=== PATIENT | male | born 1970 | race African-American/Black ===

== ENCOUNTER 2016-10-23 10:31 | Emergency (ER) | payer BC, MEDICAID ==
--- NOTE | 2016-10-23 10:50 | ER Document Report ---
ED Medical Screen (RME) - General Stated Complaint: BACK PAIN Time seen by provider: 10:49 Mode of Arrival: Ambulatory Information source: Patient Notes: 46-year-old male moved heavy locker cabinets at work yesterday [facility]. He woke up this morning when is having pain when he moves between his shoulder blades. He thinks he pulled a muscle. No shortness of breath or cough. No anterior chest pain. No abdominal pain. TRAVEL OUTSIDE OF THE [place] IN LAST 30 DAYS: No - Related Data Allergies/Adverse Reactions: No Known Allergies Allergy (Verified 10/23/16 10:49) Past Medical History - Past Medical History Cardiac Medical History: Reports: Hx Atrial Fibrillation - Resolved, Hx Hypertension Past Surgical History: Reports: Hx Tonsillectomy - Immunizations Hx Diphtheria, Pertussis, Tetanus Vaccination: Yes Physical Exam - Vital signs Vitals: Temp Pulse Resp BP Pulse Ox 97.4 F 78 18 140/97 H 99 10/23/16 10:42 10/23/16 10:42 10/23/16 10:42 10/23/16 10:42 10/23/16 10:42 Course - Vital Signs Vital signs: Temp Pulse Resp BP Pulse Ox 97.4 F 78 18 140/97 H 99 10/23/16 10:42 10/23/16 10:42 10/23/16 10:42 10/23/16 10:42 10/23/16 10:42
--- NOTE | 2016-10-23 11:23 | ER Document Report ---
ED General - General Chief Complaint: Back Pain Stated Complaint: BACK PAIN Time seen by provider: 11:18 Mode of Arrival: Ambulatory Notes: This is a 46-year-old male with a history of hypertension and A. fib and hyperlipidemia that presents today with sharp back pain. He states that at 1500 yesterday afternoon he was moving locker cabinets and strained his muscles. This morning at 0300 he woke up with the back pain, and it's been getting progressively worse. Pain is sharp and is located between the shoulder blades with no radiation. With movement pain is a 10 out of 10. Denies chest pain shortness of breath nausea vomiting fever or chills. Primary care physician is Dr. Nieves Jones. Patient denies bowel or bladder dysfunction. TRAVEL OUTSIDE OF THE [place] IN LAST 30 DAYS: No - Related Data Allergies/Adverse Reactions: No Known Allergies Allergy (Verified 10/23/16 10:49) Past Medical History - General Information source: Patient - Social History Smoking Status: Never Smoker Chew tobacco use (# tins/day): No Frequency of alcohol use: None Drug Abuse: None Family History: Reviewed & Not Pertinent Patient has suicidal ideation: No Patient has homicidal ideation: No - Past Medical History Cardiac Medical History: Reports: Hx Atrial Fibrillation - Resolved, Hx Hypertension Past Surgical History: Reports: Hx Tonsillectomy - Immunizations Hx Diphtheria, Pertussis, Tetanus Vaccination: Yes Review of Systems - Review of Systems Constitutional: denies: Chills, Fever EENT: No symptoms reported. denies: Blurred vision Cardiovascular: denies: Chest pain, Palpitations, Syncope Respiratory: denies: Cough, Hurts to breathe Gastrointestinal: denies: Abdominal pain Genitourinary: No symptoms reported Skin: No symptoms reported Hematologic/Lymphatic: No symptoms reported Neurological/Psychological: No symptoms reported Physical Exam - Vital signs Vitals: Temp Pulse Resp BP Pulse Ox 97.4 F 78 18 140/97 H 99 10/23/16 10:42 10/23/16 10:42 10/23/16 10:42 10/23/16 10:42 10/23/16 10:42 - General General appearance: Appears well In distress: None - HEENT Head: Normocephalic, Atraumatic Eyes: Normal Conjunctiva: Normal - Respiratory Respiratory status: No respiratory distress. No: Tachypnea Chest status: Nontender Breath sounds: Normal. No: Rales, Rhonchi, Stridor, Wheezing Chest palpation: Normal - Cardiovascular Rhythm: Regular Heart sounds: Normal auscultation - Abdominal Inspection: Normal Distension: No distension Bowel sounds: Normal Tenderness: Nontender - Back Back: Normal - Thoracic back pain left paraspinal tenderness. No midline tenderness. - Extremities General upper extremity: Normal inspection, Nontender, Normal ROM, Normal strength General lower extremity: Normal inspection, Nontender, Normal ROM, Normal strength Foot: Normal - Dorsalis pedis bilateral palpable. +2 capillary refill bilaterally. Patient had sensation bilaterally both to plantar and dorsal surface. - Neurological Cognition: Normal. No: Confused - Psychological Associated symptoms: Normal affect, Normal mood - Skin Skin Temperature: Warm Skin Moisture: Dry Skin Color: Normal Course - Re-evaluation Re-evalutation: 10/23/16 11:22 Patient stated that he did not want any imaging. I advised him on the benefits and risks of imaging. He has ortho follow-up on Saturday. Patient denied chest pain and shortness of breath. - Vital Signs Vital signs: Temp Pulse Resp BP Pulse Ox 98.4 F 79 16 137/85 H 98 10/23/16 11:52 10/23/16 11:52 10/23/16 11:52 10/23/16 11:52 10/23/16 11:52 Discharge - Discharge Clinical Impression: Back pain Qualifiers: Back pain location: thoracic back pain Chronicity: acute Back pain laterality: left Qualified Code(s): M54.6 - Pain in thoracic spine Condition: Stable Disposition: HOME, SELF-CARE Additional Instructions: Return to the emergency department if symptoms worsen, such as tearing back pain nausea vomiting fever or loss of distal pulses,etc. Follow-up with primary care and orthopedics as soon as possible. Prescriptions: Methocarbamol [Robaxin 750 mg Tablet] 750 mg PO Q6 PRN #10 tablet PRN Reason: Forms: Return to Work Referrals: [facility] [Provider Group] - Follow up as needed
[2016-10-23 12:04] VITALS: BP 137/85
== END 2016-10-23 12:20 | disposition home or self-care (01) ==
LOC: ER 10:31
DX: M54.6 Pain in thoracic spine (principal); I10 Essential (primary) hypertension
CPT/HCPCS: 99283

== ENCOUNTER 2017-01-15 20:19 | Emergency (ER) | payer BC, MEDICAID ==
--- NOTE | 2017-01-15 22:09 | ER Document Report ---
ED Medical Screen (RME) - General Chief Complaint: Blood Pressure Problem Stated Complaint: DIZZY BLOOD PRESSURE ISSUES Mode of Arrival: Ambulatory Information source: Patient Notes: Patient presents emergency department with reports of high blood pressure when he took it at home it was 187/103. He reports he is feeling dizzy he denies chest pain, denies SOB. He reports he is dizzy when he stands up. He reports he's had this blood pressure problem for a while and is taking his medications as prescribed. Denies fever vomiting diarrhea. History of A. fib hypertension and high cholesterol TRAVEL OUTSIDE OF THE [place] IN LAST 30 DAYS: No - Related Data Allergies/Adverse Reactions: No Known Allergies Allergy (Verified 01/15/17 21:23) Past Medical History - Past Medical History Cardiac Medical History: Reports: Hx Atrial Fibrillation - Resolved, Hx Hypertension Renal/ Medical History: Denies: Hx Peritoneal Dialysis Past Surgical History: Reports: Hx Tonsillectomy - Immunizations Hx Diphtheria, Pertussis, Tetanus Vaccination: Yes Physical Exam - Vital signs Vitals: Temp Pulse Resp BP Pulse Ox 98.6 F 74 16 165/94 H 95 01/15/17 20:30 01/15/17 20:30 01/15/17 20:30 01/15/17 20:30 01/15/17 20:30 Course - Vital Signs Vital signs: Temp Pulse Resp BP Pulse Ox 98.6 F 74 16 165/94 H 01/15/17 20:30 01/15/17 20:30 01/15/17 20:30 01/15/17 20:30 01/15/17 20:30
[2017-01-15 22:41] LABS: ABSOLUTE EOSINOPHILS # (AUTO) 0.1 10^3/uL (0.0-0.6); ABSOLUTE LYMPHOCYTES (AUTO) 0.8 10^3/uL (0.5-4.7); ABSOLUTE MONOCYTES (AUTO) 0.3 10^3/uL (0.1-1.4); ABSOLUTE NEUT (AUTO) 4.9 10^3/uL (1.7-8.2); BASOPHILS % (AUTO) 0.5 % (0-2); EOSINOPHILS % (AUTO) 0.9 % (0-6); HEMATOCRIT 42.7 % (37.9-51.0); HEMOGLOBIN 14.6 g/dL (13.5-17.0); HGB HCT DIFFERENCE 1.1; MEAN CORPUSCULAR HEMOGLOBIN 31.7 pg (27.0-33.4); MEAN CORPUSCULAR HGB CONC 34.1 g/dL (32.0-36.0); MEAN CORPUSCULAR VOLUME 93 fl (80-97); MONOCYTES % (AUTO) 4.7 % (3-13); RED BLOOD COUNT 4.59 10^6/uL (4.35-5.55); RED CELL DISTRIBUTION WIDTH 13.7 % (11.5-14.0); SEGMENTED NEUTROPHILS % (AUTO) 80.9 % (42-78)
[2017-01-15 22:57] LABS: ALANINE AMINOTRANSFERASE 38 U/L (21-72); ALBUMIN 4.4 g/dL (3.5-5.0); ALKALINE PHOSPHATASE 67 U/L (38-126); ANION GAP 10 (5-19); ASPARTATE AMINO TRANSFERASE 38 U/L (17-59); BILIRUBIN,TOTAL 1.4 mg/dL (0.2-1.3); BLOOD UREA NITROGEN 12 mg/dL (7-20); CALCIUM 9.3 mg/dL (8.4-10.2); CARBON DIOXIDE 31 mmol/L (22-30); CHLORIDE 103 mmol/L (98-107); CREATININE RESULT 1.01 mg/dL (0.52-1.25); GLUCOSE 94 mg/dL (75-110); TOTAL PROTEIN 7.3 g/dL (6.3-8.2)
[2017-01-15 23:00] LABS: APPEARANCE,URINE CLEAR; BILIRUBIN,URINE NEGATIVE (NEGATIVE); GLUCOSE, URINE NEGATIVE (NEGATIVE); KETONES,URINE NEGATIVE (NEGATIVE); LEUKOCYTE ESTERASE,URINE NEGATIVE (NEGATIVE); NITRITE,URINE NEGATIVE (NEGATIVE); PROTEIN,URINE NEGATIVE (NEGATIVE); URINE SPECIFIC GRAVITY 1.012; UROBILINOGEN,URINE NEGATIVE mg/dL (<2.0)
[2017-01-15 23:03] LABS: PROTHROMBIN TIME 14.6 SEC (11.4-15.4)
--- NOTE | 2017-01-16 04:21 | ER Document Report ---
ED General - General Chief Complaint: Blood Pressure Problem Stated Complaint: DIZZY BLOOD PRESSURE ISSUES Mode of Arrival: Ambulatory Information source: Patient, Relative TRAVEL OUTSIDE OF THE [place] IN LAST 30 DAYS: No - HPI Notes: Patient is a 46-year-old male with a history of atrial fibrillation, sleep apnea , hypertension presents to the emergency department with report that he has checked his blood pressures at home and states they are elevated and he presents with report of occasional dizziness. 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 The patient reports no fever or chills or headache or numbness or paresthesia or tinnitus. He denies any numbness or focal weakness. Patient has been compliant with his medications. - Related Data Allergies/Adverse Reactions: No Known Allergies Allergy (Verified 01/15/17 21:23) Past Medical History - General Information source: Patient - Social History Smoking Status: Never Smoker Chew tobacco use (# tins/day): No Frequency of alcohol use: None Drug Abuse: None Lives with: Family Family History: Reviewed & Not Pertinent Patient has suicidal ideation: No Patient has homicidal ideation: No - Past Medical History Cardiac Medical History: Reports: Hx Atrial Fibrillation - Resolved, Hx Hypercholesterolemia, Hx Hypertension Renal/ Medical History: Denies: Hx Peritoneal Dialysis GI Medical History: Reports: Hx Gastroesophageal Reflux Disease Past Surgical History: Reports: 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 Denies recent illness. EENT: Denies eye, ear, throat, or mouth pain or symptoms. Denies nasal or sinus congestion or discharge. Denies throat, tongue, or mouth swelling or difficulty swallowing. CARDIOVASCULAR: Denies chest pain. Denies palpitations or racing or irregular heart beat. Denies ankle edema. RESPIRATORY: Denies cough, cold, or chest congestion. Denies shortness of breath, difficulty breathing, or wheezing. GASTROINTESTINAL: Denies abdominal pain or distention. Denies nausea, vomiting , or diarrhea. Denies blood in vomitus, stools, or per rectum. Denies black, tarry stools. Denies constipation. GENITOURINARY: Denies difficulty urinating, painful urination, burning, frequency, blood in urine, or discharge. MUSCULOSKELETAL: Denies back or neck pain or stiffness. Denies joint pain or swelling. SKIN: Denies rash, lesions or sores. HEMATOLOGIC : Denies easy bruising or bleeding. LYMPHATIC: Denies swollen, enlarged glands. NEUROLOGICAL: Denies confusion or altered mental status. Denies passing out or loss of consciousness. Denies lightheadedness. Denies headache. Denies weakness or paralysis or loss of use of either side. Denies problems with gait or speech. Denies sensory loss, numbness, or tingling. Denies seizures. PSYCHIATRIC: Denies anxiety or stress. Denies depression, suicidal ideation, or homicidal ideation. ALL OTHER SYSTEMS REVIEWED AND NEGATIVE. Dictation was performed using [employer] voice recognition software Physical Exam - Vital signs Vitals: Temp Pulse Resp BP Pulse Ox 98.6 F 74 16 165/94 H 95 01/15/17 20:30 01/15/17 20:30 01/15/17 20:30 01/15/17 20:30 01/15/17 20:30 - Notes Notes: PHYSICAL EXAMINATION: GENERAL: Well-appearing, well-nourished and in no acute distress. HEAD: Atraumatic, normocephalic. EYES: Pupils equal round and reactive to light, extraocular movements intact, sclera anicteric, conjunctiva are normal. ENT: Nares patent, oropharynx clear without exudates. Moist mucous membranes. NECK: Normal range of motion, supple without lymphadenopathy. No obvious carotid bruits. LUNGS: Breath sounds clear to auscultation bilaterally and equal. No wheezes rales or rhonchi. HEART: Regular rate and rhythm without murmurs ABDOMEN: Soft, nontender, nondistended abdomen. No guarding, no rebound. No masses appreciated. Musculoskeletal: Normal range of motion, no pitting or edema. No cyanosis. NEUROLOGICAL: Cranial nerves grossly intact. Normal speech, normal gait. Normal sensory, motor exams. No cerebellar ataxia. Normal finger to nose exam. PSYCH: Normal mood, normal affect. SKIN: Warm, Dry, normal turgor, no rashes or lesions noted. Course - Re-evaluation Re-evalutation: 01/16/17 04:22 Lab work was normal with the exception of bicarbonate of 31 which was consistent with previous values and patient's history of sleep apnea and CPAP use. He was told to use his CPAP very regularly. There is no evidence for recurrence of atrial fibrillation or significant electrolyte imbalance or anemia or suggestion for CVA or TIA. Repeat exam tympanic membranes were normal and blood pressure came down to normal values. Patient was instructed to check and record his blood pressure regularly to follow-up with his regular practitioner. He will return in case of difficulty breathing, chest pain, weakness. 01/16/17 04:24 - Vital Signs Vital signs: Temp Pulse Resp BP Pulse Ox 98.6 F 58 L 16 136/98 H 97 01/15/17 20:30 01/16/17 02:04 01/16/17 02:04 01/16/17 02:04 01/16/17 02:04 - Laboratory Result Diagrams: 01/15/17 22:24 01/15/17 22:24 Laboratory results interpreted by me: 01/15/17 01/15/17 01/15/17 22:24 22:24 22:24 Plt Count 147 L Seg Neutrophils % 80.9 H Carbon Dioxide 31 H Total Bilirubin 1.4 H Urine Blood MODERATE H Discharge - Discharge Clinical Impression: Dizziness Hypertension Qualifiers: Hypertension type: essential hypertension Qualified Code(s): I10 - Essential ( primary) hypertension Condition: Stable Disposition: HOME, SELF-CARE Additional Instructions: Followup with Dr. Campos, Perioperative Tech, concerning your blood pressure and dizziness. Forms: Elevated Blood Pressure
[2017-01-16 04:37] VITALS: BP 138/99
--- NOTE | 2017-01-16 22:08 | EKG REPORT ---
SEVERITY:- ABNORMAL ECG - SINUS RHYTHM NONSPECIFIC T ABNORMALITIES, INFERIOR LEADS : Confirmed by: Marlene Dudley MD 16-Jan-2017 22:06:52
== END 2017-01-16 04:37 | disposition home or self-care (01) ==
LOC: ER 20:19
DX: R42 Dizziness and giddiness (principal); I10 Essential (primary) hypertension; I48.91 Unspecified atrial fibrillation
CPT/HCPCS: 36415; 80053; 81001; 85025; 85610; 93005; 93010; 99283

== ENCOUNTER 2017-10-08 19:20 | Emergency (ER) | payer OTHER, BC ==
[2017-10-08 19:36] VITALS: BP 151/84
--- NOTE | 2017-10-08 19:53 | ER Document Report ---
HPI - HPI Pain Level: 3 Notes: Patient is a 47-year-old male with a history of A. fib who presents the ED complaining of nasal congestion/discharge, occasional dry nonproductive cough 4 days. Cough has almost resolved per patient. Patient also complains of a "burning" sensation to his abdomen that runs from the epigastric to the umbilicus that is considered mild but developed 2 days ago. Pt states that he has a bulge to his abdomen which is new and started with the burning sensation. The burning sensation has been improving since development of the "bulge." He is still eating and drinking without difficulties or worsening symptoms. He is urinating normally and having normal bowel movements. Patient states that he has a known umbilical hernia, but that does not bother him at all at this time. He denies any drug allergies or other significant medical history. Denies any cardiac history. Patient states that overall his URI symptoms have been slowly improving. Denies any headache, fever, neck pain, URI, sore throat , chest pain, palpitations, syncope, [place], cough, shortness of breath, wheeze, dyspnea, abdominal pain, nausea/vomiting/diarrhea, urinary retention, dysuria, hematuria, loss of control of bowel or bladder, numbness/tingling, saddle anesthesia, muscle paralysis/weakness, or rash. - ROS Notes: REVIEW OF SYSTEMS: CONSTITUTIONAL : Denies fever, chills, or sweats. Denies recent illness. EENT: see hpi. CARDIOVASCULAR: Denies chest pain. Denies palpitations or racing or irregular heart beat. Denies ankle edema. RESPIRATORY: see hpi. Denies shortness of breath, difficulty breathing, or wheezing. GASTROINTESTINAL: see hpi. Denies nausea, vomiting, or diarrhea. Denies blood in vomitus, stools, or per rectum. Denies black, tarry stools. Denies constipation. GENITOURINARY: Denies difficulty urinating, painful urination, burning, frequency, blood in urine, or discharge. MUSCULOSKELETAL: Denies back or neck pain or stiffness. Denies joint pain or swelling. SKIN: Denies rash, lesions or sores. NEUROLOGICAL: Denies confusion or altered mental status. Denies passing out or loss of consciousness. Denies dizziness or lightheadedness. Denies headache. Denies problems with gait or speech. Denies sensory loss, numbness , or tingling. Denies seizures. ALL OTHER SYSTEMS REVIEWED AND NEGATIVE. Dictation was performed using [employer] voice recognition software - CONSTITUTIONAL Constitutional: DENIES: Fever, Chills - RESPIRATORY Respiratory: REPORTS: Coughing Past Medical History - Social History Smoking Status: Never Smoker Chew tobacco use (# tins/day): No Frequency of alcohol use: None Drug Abuse: None Family History: Reviewed & Not Pertinent Patient has suicidal ideation: No Patient has homicidal ideation: No - Past Medical History Cardiac Medical History: Reports: Hx Atrial Fibrillation - Resolved, Hx Hypercholesterolemia, Hx Hypertension Renal/ Medical History: Denies: Hx Peritoneal Dialysis GI Medical History: Reports: Hx Gastroesophageal Reflux Disease Past Surgical History: Reports: 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 A&Ox4 HEAD: Atraumatic, normocephalic. EYES: Pupils equal round and reactive to light, extraocular movements intact, sclera anicteric, conjunctiva are normal. ENT: EAC clear b/l. TM's intact b/l without erythema, fluid, or perforation. Nares patent and without discharge. oropharynx clear without exudates. No tonsilar hypertrophy or erythema. Moist mucous membranes. No sinus tenderness. Uvula midline. No palatine shift. No tongue protrusion. No airway compromise. NECK: Normal range of motion, supple without lymphadenopathy. No rigidity/ meningismus. LUNGS: Breath sounds clear to auscultation bilaterally and equal. No wheezes rales or rhonchi. HEART: Regular rate and rhythm without murmurs, rubs, gallops. ABDOMEN: Soft, nontender, nondistended abdomen. No guarding, no rebound. No masses appreciated. Normal bowel sounds present. No CVA tenderness bilaterally. + diastasis recti to the mid abdomen (correlates with patient's new "bulge"). Umbilical hernia noted that is reducible and not incarcerated. Extremities: No cyanosis, clubbing, or edema b/l. Peripheral pulses 2+. Capillary refill less than 3 seconds. NEUROLOGICAL: Cranial nerves grossly intact. Normal speech, normal gait. Normal sensory, motor exams PSYCH: Normal mood, normal affect. SKIN: Warm, Dry, normal turgor, no rashes or lesions noted. - INFECTION CONTROL TRAVEL OUTSIDE OF THE [place] IN LAST 30 DAYS: No - RESPIRATORY O2 Sat by Pulse Oximetry: 97 Course - Re-evaluation Re-evalutation: 10/08/17 20:00 Patient is an afebrile, well-hydrated, 47-year-old male who presents the ED with acute URI, suspect viral, and new onset diastases recti (reducible). vitals are stable. PE is otherwise unremarkable. No labs or imaging warranted at this time based on H&P. Patient's URI symptoms have been improving and without any physical exam findings to warrant further investigation. Low suspicion for any ACS, PE, pneumothorax, pericarditis, dissection, respiratory compromise, severe dehydration, sepsis, meningitis, acute abdomen, incarcerated hernia, or other systemic emergent condition at this time. Patient is aware that her condition can change from initial presentation and she needs to monitor symptoms closely and seek medical attention for any acute changes. Recommend conservative measures for symptoms. Recheck with your PCM in 3-5 days. Consider consult with the General Surgeon for the umbilical hernia. Return to the ED with any worsening/concerning symptoms otherwise as reviewed in discharge. Patient is in agreement. - Vital Signs Vital signs: Temp Pulse Resp BP Pulse Ox 97.7 F 71 18 151/84 H 97 10/08/17 19:34 10/08/17 19:34 10/08/17 19:34 10/08/17 19:34 10/08/17 19:34 Discharge - Discharge Clinical Impression: Acute URI, Diastasis recti Condition: Stable Disposition: HOME, SELF-CARE Additional Instructions: Maintain adequate fluid intake Take meds as directed tylenol/ibuprofen as needed over the counter cold medication as needed for symptoms Humidified air may help with a cough Monitor for any acute changes in your symptoms F/u: with your PCM in 3-5 days for a recheck Consider consult with the General Surgeon for ongoing/worsening symptoms. Return to the ED with any worsening symptoms and/or development of fever, headache, chest pain, palpitations, syncope, shortness of breath, trouble breathing, abdominal pain, non-reducible hernia, n/v/d, blood in stool/urine, loss of control of bowel/bladder, urinary retention, muscle weakness/paralysis, saddle anesthesia, numbness/tingling, or other worsening symptoms that are concerning to you. Forms: Elevated Blood Pressure Referrals: LENKA PAREKH MD [Primary Care Provider] - Follow up in 3-5 days GINO GLASER MD [ACTIVE STAFF] - Follow up as needed
== END 2017-10-08 20:10 | disposition home or self-care (01) ==
LOC: ER 19:20
DX: J06.9 Acute upper respiratory infection, unspecified (principal); Q79.59 Other congenital malformations of abdominal wall; I48.91 Unspecified atrial fibrillation; R09.81 Nasal congestion
CPT/HCPCS: 99283